=== PATIENT | female | born 1980 | race Caucasian/White ===

== ENCOUNTER → 2020-04-04 14:07 | Outpatient (BNVA) | payer BC, SELFPAY | PROVIDERS: Family Provider Family Medicine; PCP Family Medicine; Visit Provider Nurse Practitioner | DX: J02.9 Acute pharyngitis, unspecified (principal) | CPT/HCPCS: 87071; 87880 ==

== ENCOUNTER 2021-03-09 15:24 | Emergency (ER) | payer BC, SELFPAY ==
[2021-03-09 15:51] VITALS: BP 131/85; PULSE 80; RESP 18; TEMP 36.6; O2SAT 100; BMI 17.9
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
[2021-03-09 18:43] VITALS: PULSE 62; RESP 16; O2SAT 99
[2021-03-09] MEDS: ketorolac 60 mg/2 mL INJ IM (18:43)
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
== END 2021-03-09 18:44 | disposition home or self-care (01) ==
PROVIDERS: Emergency Provider Physician Assistant; PCP Family Medicine
DX: Z04.1 Encounter for examination and observation following transport accident (principal); V89.2XXA Person injured in unspecified motor-vehicle accident, traffic, initial encounter
CPT/HCPCS: 72072; 72100; 96372; 99283; J1885

== ENCOUNTER → 2021-10-05 16:48 | Outpatient (BNVA) | payer BC, SELFPAY | PROVIDERS: PCP Family Medicine; Visit Provider Family Medicine | DX: J02.9 Acute pharyngitis, unspecified (principal); Z20.822 Contact with and (suspected) exposure to COVID-19 | CPT/HCPCS: 87426; 87880 ==

== ENCOUNTER → 2023-10-07 17:50 | Outpatient (BNVA) | payer BC, SELFPAY | PROVIDERS: PCP Family Medicine; Visit Provider Registered Nurse Neonatal Intensive Care | DX: R30.9 Painful micturition, unspecified (principal) | CPT/HCPCS: 81000 ==

== ENCOUNTER → 2023-12-02 18:03 | Outpatient (BNVA) | payer BC, SELFPAY | PROVIDERS: PCP Family Medicine; Visit Provider Family Medicine | DX: R49.1 Aphonia (principal) | CPT/HCPCS: 87880 ==

== ENCOUNTER 2023-12-18 17:04 | Emergency (ER) | payer BC, SELFPAY ==
[2023-12-18 17:18] VITALS: BP 135/84; PULSE 75; RESP 16; TEMP 36.7; O2SAT 100
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
[2023-12-18] MEDS: ketorolac 60 mg/2 mL INJ IM (20:03)
[2023-12-18] MEDS: orphenadrine 30 mg/mL Inj 2 mL 60 MG IM (20:03)
== END 2023-12-18 21:24 | disposition home or self-care (01) ==
PROVIDERS: Emergency Provider Emergency Medicine; PCP Family Medicine
DX: S16.1XXA Strain of muscle, fascia and tendon at neck level, initial encounter (principal); V89.2XXA Person injured in unspecified motor-vehicle accident, traffic, initial encounter
CPT/HCPCS: 72040; 72070; 72100; 96372; 99284; J1885; J2360

== ENCOUNTER 2024-06-19 19:03 | Emergency (ER) | payer BC, SELFPAY ==
[2024-06-19 19:11] VITALS: BP 142/93; PULSE 68; TEMP 36.4; O2SAT 100; BMI 21.0
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
[2024-06-19] MEDS: orphenadrine 30 mg/mL Inj 2 mL 60 MG IM (19:47)
[2024-06-19] MEDS: ketorolac 30 mg/mL INJ IM (19:47)
[2024-06-19 19:54] VITALS: BP 139/97; PULSE 64; O2SAT 98
[2024-06-19 20:51] VITALS: BP 141/100; PULSE 77; O2SAT 96
== END 2024-06-19 20:52 | disposition home or self-care (01) ==
PROVIDERS: Emergency Provider Physician Assistant; PCP Family Medicine
DX: S16.1XXA Strain of muscle, fascia and tendon at neck level, initial encounter (principal); S39.012A Strain of muscle, fascia and tendon of lower back, initial encounter; V89.2XXA Person injured in unspecified motor-vehicle accident, traffic, initial encounter
CPT/HCPCS: 72125; 72131; 96372; 99284; J1885; J2360